=== PATIENT | male | born 1945 | race Caucasian/White ===

== ENCOUNTER 2020-01-27 06:10 | Day surgery (SDC) | payer OTHER ==
[~2020-01-27] VITALS: Ht 172.7 cm; Wt 80.7 kg
[~2020-01-27 06:10] MED LIST: ACET325 PO; ALBU90OI6 INH; ALBU90OI61 INH; CEFU500T30 PO; DULERA 200 MCG/13 GM INH; Flonase 0.05% N16 GM; OMEP20ER PO; Omeprazole20 M1 PO; PRED20 PO; PROZAC20 MG PO; Prozac20 MG PO; TRAZ50 PO
[2020-01-27] MEDS ORDERED: STIOLTO RESPIMAT4 G1 (06:31)
[2020-01-27] MEDS ORDERED: ATOR20 (06:31)
== END 2020-01-27 08:22 | disposition home or self-care (01) ==
LOC: ORSCSDS 06:10
PROVIDERS: Ophthalmology
PROC: 08RJ3JZ Replacement of Right Lens with Synthetic Substitute, Percutaneous Approach (ICD-10-PCS; principal; 2020-01-27 07:30)
DX: H25.11 Age-related nuclear cataract, right eye (principal); I10 Essential (primary) hypertension; G47.33 Obstructive sleep apnea (adult) (pediatric); J44.9 Chronic obstructive pulmonary disease, unspecified; K21.9 Gastro-esophageal reflux disease without esophagitis; Z79.899 Other long term (current) drug therapy
CPT/HCPCS: J2001; J2250; J3010; J3301; J7040; V2632

== ENCOUNTER 2020-03-30 06:39 | Day surgery (SDC) | payer OTHER ==
[~2020-03-30] VITALS: Ht 175.3 cm; Wt 81.1 kg
[~2020-03-30 06:39] MED LIST changes: +ATOR20; +STIOLTO RESPIMAT4 G1
== END 2020-03-30 08:57 | disposition home or self-care (01) ==
LOC: ORSCSDS 06:39
PROVIDERS: Ophthalmology
PROC: 08RK3JZ Replacement of Left Lens with Synthetic Substitute, Percutaneous Approach (ICD-10-PCS; principal; 2020-03-30 08:00)
DX: H25.12 Age-related nuclear cataract, left eye (principal); J44.9 Chronic obstructive pulmonary disease, unspecified; Z87.891 Personal history of nicotine dependence; G47.33 Obstructive sleep apnea (adult) (pediatric); K21.9 Gastro-esophageal reflux disease without esophagitis; Z79.899 Other long term (current) drug therapy
CPT/HCPCS: J2001; J2250; J3010; J3301; J7040; V2632

== ENCOUNTER → 2021-07-11 | Outpatient (CLI) | payer OTHER ==
[2021-07-11 19:58] LABS: Bacteria Few /hpf; Mucus Light (0-Heavy); Red Blood Cells, Urine 0-2 /hpf (0-2); Squamous Epithelial Cells Few /hpf (Few); White Blood Cells, Urine 0-2 /hpf (0-5)
== END | disposition home or self-care (01) ==
LOC: LAB SHORT 12:24
PROVIDERS: Nurse Practitioner Family
DX: R35.0 Frequency of micturition (principal)
CPT/HCPCS: 81015

== ENCOUNTER → 2023-03-06 | Outpatient (CLI) | payer OTHER ==
[2023-03-06 09:21] LABS: Source, Urine Clean Catch
[2023-03-06 12:37] LABS: Appearance, Urine Clear (Clear); Bilirubin, Urine Neg (Neg); Blood, Urine Neg (Neg); Color, Urine Yellow (P-Yellow); Glucose Qualitative, Urine Neg (Neg); Ketones, Urine Neg (Neg); Leukocyte Esterase, Urine Neg (Neg); Nitrite, Urine Neg (Neg); Protein, Urine Neg (Neg); Urobilinogen, Urine 1+ (Normal)
== END | disposition home or self-care (01) ==
LOC: LAB 05:30 → LAB SHORT 05:30
PROVIDERS: Nurse Practitioner Family
DX: R41.89 Other symptoms and signs involving cognitive functions and awareness (principal)
CPT/HCPCS: 81003

== ENCOUNTER → 2023-05-30 | Outpatient (CLI) | payer OTHER ==
[2023-05-30 08:21] LABS: Source, Urine Clean Catch
[2023-05-30 12:31] LABS: Appearance, Urine Clear (Clear); Bilirubin, Urine Neg (Neg); Blood, Urine Neg (Neg); Color, Urine Yellow (P-Yellow); Glucose Qualitative, Urine Neg (Neg); Ketones, Urine Neg (Neg); Leukocyte Esterase, Urine Neg (Neg); Nitrite, Urine Neg (Neg); Protein, Urine Neg (Neg); Specific Gravity, Urine 1.015 (1.003-1.022); Urobilinogen, Urine NORM (Normal)
== END | disposition home or self-care (01) ==
LOC: LAB 07:00 → LAB SHORT 07:00
PROVIDERS: Nurse Practitioner Family
DX: E78.1 Pure hyperglyceridemia (principal)
CPT/HCPCS: 81003

== ENCOUNTER 2024-07-17 07:44 | Observation (INO) | payer OTHER ==
[~2024-07-17] VITALS: Ht 177.8 cm; Wt 78.3 kg
[~2024-07-17 07:44] MED LIST changes: -ATOR20; +ATOR20 PO; -STIOLTO RESPIMAT4 G1; +STIOLTO RESPIMAT4 G1 INH
[2024-07-17] MEDS ORDERED: MethylPREDNISolone Sod Succ 125 MG Vial IV ONE (08:10)
[2024-07-17] MEDS ORDERED: Albuterol 2.5 MG/3 ML VIAL INH SCH (08:10)
[2024-07-17 08:37] LABS: BASOPHILS ABSOLUTE AUTO 0.07 K/mm3 (0.00-0.23); BASOPHILS PERCENT AUTO 1 % (0-2); EOSINOPHILS ABSOLUTE AUTO 0.26 K/mm3 (0.00-0.68); EOSINOPHILS PERCENT AUTO 2 % (0-6); Hematocrit 44.6 % (37.0-53.0); Hemoglobin 15.3 g/dL (13.5-17.5); IMMATURE GRAN ABSOLUTE AUTO 0.04 K/mm3 (0.00-0.10); IMMATURE GRAN PERCENT AUTO 0 % (0-1); LYMPHOCYTES ABSOLUTE AUTO 1.07 K/mm3 (0.84-5.20); LYMPHOCYTES PERCENT AUTO 9 % (21-46); MONOCYTES ABSOLUTE AUTO 1.52 K/mm3 (0.16-1.47); MONOCYTES PERCENT AUTO 13 % (4-13); Mean Corpuscular HGB 30.1 pg (26.0-34.0); Mean Corpuscular HGB Conc 34.3 g/dL (31.5-36.5); Mean Corpuscular Volume 88 fL (80-100); Mean Platelet Volume 10.2 fL (9.1-12.4); NEUTROPHILS ABSOLUTE AUTO 8.73 K/mm3 (1.96-9.15); NEUTROPHILS PERCENT AUTO 75 % (41-73); Platelet Count 173 K/mm3 (150-400); RDW Coefficient Variation 12.6 % (11.7-14.2); RDW Standard Deviation 41.1 fL (35.1-46.3); Red Blood Cell Count 5.09 M/mm3 (4.30-5.90); White Blood Cell Count 11.69 K/mm3 (4.00-11.30)
[2024-07-17 08:55] LABS: Bun/Creatinine Ratio 14.6 (12.0-20.0); Creatinine, Blood 1.03 mg/dL (0.60-1.20)
[2024-07-17 09:26] LABS: Influenza A, PCR NEGATIVE (NEGATIVE); Influenza B, PCR NEGATIVE (NEGATIVE); Resp Syncytial Virus, PCR NEGATIVE (NEGATIVE); SARS-Cov-2 (COVID-19) PCR, MMC NEGATIVE (NEGATIVE)
[2024-07-17] MEDS ORDERED: Ciprofloxacin 400MG/D5 200ML 200 ML IV ONE (09:45)
[2024-07-17] MEDS ORDERED: Flonase 0.05% Nasal (12:40)
[2024-07-17] MEDS ORDERED: MEMA10 PO (12:41)
[2024-07-17] MEDS ORDERED: FLOMAX0.4 MG PO (12:42)
[2024-07-17] MEDS ORDERED: Bisacodyl 10 MG Supp PR PRN (12:45)
[2024-07-17] MEDS ORDERED: Ipratropium/Albuterol SulF 2.5-0.5MG/3 ML Amp INH SCH (12:45)
[2024-07-17] MEDS ORDERED: Magnesium Hydroxide Conc 10 ML UDC PO PRN (12:45)
[2024-07-17] MEDS ORDERED: Azithromycin 250 MG Tab PO SCH (13:00)
[2024-07-17 15:23] VITALS: BP 114/59
--- NOTE | 2024-07-17 16:38 | NUR ---
PT ADMIT FROM ED. R/A, INDEPENDENT IN THE ROOM. ORIENTED AND CALLS APPROPRIATLEY. DIMINISHED IN ALL LOBES
[2024-07-17 19:51] VITALS: BP 116/56
[2024-07-17] MEDS ORDERED: Fluticasone 0.05% Nasal Spray SCH (21:00)
[2024-07-17] MEDS ORDERED: TraZODone HCl 50 MG Tab PO SCH (21:00)
[2024-07-18] MEDS ORDERED: Acetaminophen 325 MG TABLET PO PRN (04:10)
[2024-07-18 04:47] VITALS: BP 121/65
--- NOTE | 2024-07-18 05:29 | NUR ---
SHIFT SUMMARY PT ALERT ORIENTED X 4 ABLE TO VERBALIZE NEEDS GETS UP AD [place] IN ROOM AND GOES TO THE BATHROOM. HE HAS BEEN ON O2 AT 2L VIA NC THROUGHOUT THE NIGHT. HE NORMALLY USES 2L AT NIGHT AT HOME. CONTINUES ON A CONTINUOUS PULSE OX. VSS SATTING AT 91-92%. C/O SORE THROAT TYLENOL WAS GIVEN. PT STATED THAT EVEN AFTER TAKING HIS NIGHT MEDS THAT HE WAS HAVING A HARD TIME SLEEPING. REMAINS ON ZITHROMAX ORDERED FOR COPD EXAC. REMAINS WITH A NONPRODUCTIVE COUGH. LYING IN BED AT THIS TIME WITH CAll light in reach
[2024-07-18 05:47] LABS: BASOPHILS ABSOLUTE AUTO 0.03 K/mm3 (0.00-0.23); BASOPHILS PERCENT AUTO 0 % (0-2); EOSINOPHILS PERCENT AUTO 0 % (0-6); Hemoglobin 13.6 g/dL (13.5-17.5); IMMATURE GRAN ABSOLUTE AUTO 0.14 K/mm3 (0.00-0.10); IMMATURE GRAN PERCENT AUTO 1 % (0-1); LYMPHOCYTES ABSOLUTE AUTO 1.27 K/mm3 (0.84-5.20); LYMPHOCYTES PERCENT AUTO 7 % (21-46); MONOCYTES ABSOLUTE AUTO 1.87 K/mm3 (0.16-1.47); MONOCYTES PERCENT AUTO 11 % (4-13); Mean Corpuscular HGB 29.9 pg (26.0-34.0); Mean Corpuscular Volume 88 fL (80-100); Mean Platelet Volume 10.5 fL (9.1-12.4); NEUTROPHILS ABSOLUTE AUTO 14.13 K/mm3 (1.96-9.15); NEUTROPHILS PERCENT AUTO 81 % (41-73); Platelet Count 172 K/mm3 (150-400); RDW Coefficient Variation 12.5 % (11.7-14.2); RDW Standard Deviation 40.2 fL (35.1-46.3); Red Blood Cell Count 4.55 M/mm3 (4.30-5.90); White Blood Cell Count 17.44 K/mm3 (4.00-11.30)
[2024-07-18 06:07] LABS: Bun/Creatinine Ratio 20.9 (12.0-20.0); Calcium, Blood 9.6 mg/dL (8.5-10.1); Creatinine, Blood 1.15 mg/dL (0.60-1.20); Potassium, Blood 4.1 mmol/L (3.5-5.5)
[2024-07-18 07:16] VITALS: BP 139/65
[2024-07-18] MEDS ORDERED: Tamsulosin HCl 0.4 MG Cap PO SCH (09:00)
[2024-07-18] MEDS ORDERED: Atorvastatin 10 MG Tab PO SCH (09:00)
[2024-07-18] MEDS ORDERED: Memantine HCL 5 MG Tab PO SCH (09:00)
[2024-07-18] MEDS ORDERED: PredniSONE 20 MG Tab PO SCH (09:00)
[2024-07-18] MEDS ORDERED: FLUoxetine HCL 20 MG CAP PO SCH (09:00)
[2024-07-18] MEDS ORDERED: Enoxaparin 40 MG/0.4 ML SYR SC SCH (09:00)
[2024-07-18] MEDS ORDERED: Loratadine 10 MG Tab PO SCH (09:00)
[2024-07-18 15:07] VITALS: BP 142/75
[2024-07-18] MEDS ORDERED: Albuterol 2.5 MG/3 ML VIAL INH PRN (15:30)
--- NOTE | 2024-07-18 17:28 | NUR ---
SHIFT SUMMARY PT AOX4, COOPERATIVE, ABLE TO MAKE NEEDS KNOWN. PT IND IN ROOM, USING BATHROOM APPROPRIATELY. ON 2L O2 CURRENTLY. TOLERATING PO AND IV MEDICATION APPROPRIATELY. SHOULD BE DISCHARGING ON 07/19/24. BED IN LOWEST POSITION, CALL LIGHT WITHIN REACH.
[2024-07-18 19:19] VITALS: BP 137/76
[2024-07-18] MEDS ORDERED: Calcium Carbonate 500 MG Tab Chew PO PRN (20:20)
[2024-07-19 02:24] VITALS: BP 133/77
--- NOTE | 2024-07-19 03:50 | NUR ---
SHIFT SUMM: PT IS A 78 YO FULL CODE ADMITTED FOR COPD EXACERBATION.PT HAS BEEN RESTING MOST OF THE EVENING AND AND CURRENTLY ON CONT PULSE OX AND 2L NC. PT IS IND IN ROOM AND MAKES NEEDS KNOWN W/CALL LIGHT. PT REQUESTED "TUMS" THIS EVENING AND I CALLED THE HOSPITALIST WHO ORDERED SOME TUMS (SEE EMAR). PT MIGHT POSSIBLY D/CTODAY PER RN DAYSHIFT.
[2024-07-19] MEDS ORDERED: Omeprazole 20 MG CapCR PO SCH (06:00)
[2024-07-19 07:43] VITALS: BP 134/77
[2024-07-19] MEDS ORDERED: STIOLTO INH SCH (09:00)
[2024-07-19] MEDS ORDERED: TUMS500 MG PO (12:06)
[2024-07-19] MEDS ORDERED: DULCOLAX400 MG/5 M PO (12:07)
[2024-07-19] MEDS ORDERED: PRED20 PO (12:07)
--- NOTE | 2024-07-19 14:17 | NUR ---
1245- PT DC IN STABLE CONDITION WITH . PT LEFT WITH ALL BELONGINGS. MEDS FAXED TO [facility].
== END 2024-07-19 13:20 | disposition home or self-care (01) ==
LOC: ER 07:44 → MEDS 07:45 → ER 10:28 → MEDS 10:28 → ENPENDDIS 07-19 13:26
PROVIDERS: Emergency Medicine; ADMIT Student in an Organized Health Care Education/Training Program
DX: J44.1 Chronic obstructive pulmonary disease with (acute) exacerbation (principal); J96.01 Acute respiratory failure with hypoxia; B34.9 Viral infection, unspecified; J30.9 Allergic rhinitis, unspecified; E78.5 Hyperlipidemia, unspecified; F32.9 Major depressive disorder, single episode, unspecified; F51.04 Psychophysiologic insomnia; I70.0 Atherosclerosis of aorta; I71.40 Abdominal aortic aneurysm, without rupture, unspecified; N40.0 Benign prostatic hyperplasia without lower urinary tract symptoms; K21.9 Gastro-esophageal reflux disease without esophagitis; Z87.891 Personal history of nicotine dependence; Z79.899 Other long term (current) drug therapy; Z88.0 Allergy status to penicillin
CPT/HCPCS: 0241U; 36415; 71045; 80048; 83880; 84145; 84484; 85025; 93005; 93010; 94640; 94644; 94664; 94760; 94762; 96372; 96374; 96375; 99285-25; A9270; G0378; J0744; J1650; J2919; J7512